=== PATIENT | female | born 1950 | race Caucasian/White ===

== ENCOUNTER 2022-11-18 19:43 | Emergency (ER) | payer MEDICARE, OTHER, SELFPAY ==
[2022-11-18 19:56] VITALS: BP 117/63; PULSE 86; RESP 20; TEMP 36.7; O2SAT 99; BMI 23.3
--- NOTE | 2022-11-18 20:36 | ED_ITS ---
HPI - Skin/Abscess/Foreign Bdy General: Chief complaint: Skin/Abscess/Foreign Body Stated complaint: allergic reaction has hives Time Seen by Provider: 11/18/22 20:32 History of Present Illness: 71-year-old female comes in today for complaints of hives. Patient reports that she was outside working in the yard and the just came in and noticed that she was starting to break out in hives. Patient does not know if she came in contact due to the hives or was exposed when she ate a [employer] sandwich. Patient denies any difficulty swallowing, nausea or vomiting, chest pain, shortness of breath, or diarrhea. Patient appears nontoxic. Patient appears in no acute distress. Associated symptoms: Deny fever(s), nausea or vomiting Review of Systems Const: Denies: fever(s) ENMT: Denies: throat pain Card: Denies: chest pain Resp: Denies: dyspnea GI: Denies: nausea, vomiting or diarrhea : Denies: difficulty voiding Skin/Breast: Reports: rash Physical Exam Const: COMMON NORMALS: alert HENMT: COMMON NORMALS: normocephalic HEAD & SCALP: normocephalic MOUTH: Normal oral and palatal mucosa present THROAT: posterior oropharynx normal Neck/C-Spine: COMMON NORMALS: full ROM and no meningeal signs Resp: COMMON NORMALS: normal respiratory effort and clear to auscultation bilaterally AUSCULTATION: clear to auscultation bilaterally Cardio: COMMON NORMALS: regular rate and regular rhythm RATE: regular rate RHYTHM: regular rhythm GI: COMMON NORMALS: Soft to palpation and non-tender PALPATION: Yes Soft to palpation Back/Pelvis: COMMON NORMALS: thoracic and lumbar spine normal to inspection Extremity: COMMON NORMALS: normal to inspection Neuro: SENSORIUM/ORIENTATION: Yes alert MENINGEAL SIGNS: Yes no meningeal signs Skin: RASHES: rashes noted (Generalized hives) Course Vital Signs: Vital signs: Vital Signs Temperature 98.1 F 11/18/22 19:56 Pulse Rate 86 11/18/22 19:56 Respiratory Rate 20 H 11/18/22 19:56 Blood Pressure 117/63 11/18/22 19:56 Pulse Oximetry 99 11/18/22 19:56 Oxygen Delivery Me thod 11/18/22 19:56 MDM - Skin/Abscess/Foreign Bdy Medicial Decision Making 71-year-old female comes in today for complaints of hives. Patient appears nontoxic. Respirations are even lungs are clear to auscultation. Patient has hives to the extremity and neck area. Patient moves all extremities well. Vital signs are normal. Differential diagnosis includes not limited to allergic reaction, idiopathic urticaria, anxiety. Patient was treated for urticaria in the ER with 20 mg of Claritin and 10 mg of dexamethasone. Patient had significant improvement in the hives. Recommend continuing Claritin 1 to 2 tablets every 12 hours as needed for rash or itching. Discussed need for repeat injection of dexamethasone in 3 days if rash recurs or persists. Recommend return to the ER for worsening symptoms such as shortness of breath or chest pain. Patient stated understanding and agreed to plan. Discharge Plan Discharge Patient Disposition: Home Clinical Impression: Urticaria Condition: Stable Discharge Orders: Discharge ED (Routine); Ordered 11/18/22 Ordered By: Ralf Reeves Discharge Diet: Usual diet Discharge Activity: Increase activity as tolerated Patient Instructions: Urticaria (ED) Activity Restrictions/Additional Instructions: Continue with Claritin or Zyrtec 1 to 2 tablets twice a day as needed for hives or itching. Drink plenty of water with medications. Follow-up with primary care for further instructions. Return to ED for worsening symptoms such as high fever greater than 100.4, inability to hold fluids down, shortness of breath, or chest pain. Coding Level of Care Code ED [employer] for Susanne Robles
[2022-11-18] MEDS: dexamethasone 10 mg/mL INJ IM (21:03)
[2022-11-18] MEDS: loratadine 10 mg Tablet 20 MG PO (21:05)
[2022-11-18 22:05] VITALS: PULSE 84; RESP 16; O2SAT 98
== END 2022-11-18 22:06 | disposition home or self-care (01) ==
PROVIDERS: Emergency Provider Nurse Practitioner Family
DX: L50.9 Urticaria, unspecified (principal)
CPT/HCPCS: 96372; 99284; J1100

== ENCOUNTER 2025-05-22 06:30 | Outpatient (RCR) | payer MEDICARE, OTHER, SELFPAY | END 2025-06-20 23:59 | disposition home or self-care (01) | LOC: SPT 06:30 | PROVIDERS: Visit Provider Nurse Practitioner Women's Health | DX: R39.14 Feeling of incomplete bladder emptying (principal); M79.10 Myalgia, unspecified site; N39.46 Mixed incontinence | CPT/HCPCS: 97161; 97530 ==

== ENCOUNTER 2025-06-21 05:00 | Outpatient (RCR) | payer MEDICARE, OTHER, SELFPAY | END 2025-07-21 23:59 | disposition home or self-care (01) | LOC: SPT 05:00 | PROVIDERS: Visit Provider Nurse Practitioner Women's Health | DX: R39.14 Feeling of incomplete bladder emptying (principal); M79.10 Myalgia, unspecified site; N39.46 Mixed incontinence | CPT/HCPCS: 97110; 97530 ==

== ENCOUNTER 2025-07-22 05:00 | Outpatient (RCR) | payer MEDICARE, OTHER, SELFPAY | END 2025-08-20 23:59 | disposition home or self-care (01) | LOC: SPT 05:00 | PROVIDERS: Visit Provider Nurse Practitioner Women's Health | DX: R39.14 Feeling of incomplete bladder emptying (principal); M79.10 Myalgia, unspecified site; N39.46 Mixed incontinence | CPT/HCPCS: 97110 ==